=== PATIENT | female | born 1970 | race Caucasian/White ===

== ENCOUNTER 2018-08-26 00:44 | Inpatient (IN) | payer MEDICAID ==
[~2018-08-26] VITALS: Ht 165.1 cm; Wt 72.6 kg
[2018-08-26 00:53] VITALS: Ht 165.1 cm; Wt 72.6 kg
[2018-08-26 01:55] LABS: CALCIUM 8.1 mg/dL (8.5-10.1); CARBON DIOXIDE 19.4 mmol/L (21-32); CHLORIDE SERUM 97 mmol/L (98-107); CREATININE SERUM 0.9 mg/dL (0.6-1.0); GFR1 > 60 mL/min; GLUCOSE SERUM 235 mg/dL (74-106); POTASSIUM SERUM 4.1 mmol/L (3.5-5.1); SODIUM SERUM 131 mmol/L (136-145)
[2018-08-26 02:00] LABS: ALKALINE PHOSPHATASE 49 U/L (46-116); ALT/SGPT 16 U/L (14-59); AST/SGOT 22 U/L (15-37); BILIRUBIN TOTAL 0.41 mg/dL (0.20-1.00); TOTAL PROTEIN, SERUM 6.7 g/dL (6.4-8.2)
[2018-08-26 02:01] LABS: BASOPHIL % 0.2 % (0-2); PLATELET COUNT 342 x10^3mcL (130-400); RED CELL DISTRIBUTION WIDTH 13.6 % (11.5-14.5)
[2018-08-26 04:33] LABS: AMYLASE 31 U/L (25-115); CHOLESTEROL 179 mg/dL (<200); LIPASE 149 IU/L (73-393); MAGNESIUM 1.8 mg/dL (1.8-2.4); PHOSPHOROUS 3.4 mg/dL (2.5-4.9)
[2018-08-26 04:34] LABS: CHOLESTEROL/HDL RATIO 10.5; HDL CHOLESTEROL 17 mg/dL (40-60); TRIGLYCERIDES 503 mg/dL (<150)
[2018-08-26] MEDS ORDERED: METFORMIN HYDR500 M1 (04:34)
[2018-08-26 04:41] LABS: FREE T4 1.37 ng/dL (0.76-1.46); FREE THYROXINE INDEX 3.4 ug/dL (1.4-4.5); T3 TOTAL 1.27 ng/mL; T4(THYROXINE) 10.1 ug/dL (4.7-13.3)
[2018-08-26 05:14] LABS: UA SPECIFIC GRAVITY 1.015 (1.005-1.035); microscopic required? YES; urine erythrocyte 2+ (NEGATIVE)
[2018-08-26 05:19] VITALS: BP 101/66
[2018-08-26 05:27] LABS: AMPHETAMINE QUAL UR NONE DETECTED (See below)
[2018-08-26 06:26] LABS: CALCIUM 6.8 mg/dL (8.5-10.1); CHLORIDE SERUM 102 mmol/L (98-107); CREATININE SERUM 0.8 mg/dL (0.6-1.0); GFR1 > 60 mL/min; GLUCOSE SERUM 239 mg/dL (74-106); MAGNESIUM 1.8 mg/dL (1.8-2.4); PHOSPHOROUS 2.8 mg/dL (2.5-4.9); POTASSIUM SERUM 4.3 mmol/L (3.5-5.1); SODIUM SERUM 134 mmol/L (136-145)
[2018-08-26 07:12] LABS: BASOPHIL % 0.3 % (0-2); PLATELET COUNT 306 x10^3mcL (130-400); RED CELL DISTRIBUTION WIDTH 13.3 % (11.5-14.5)
[2018-08-26 08:34] VITALS: BP 99/65
[2018-08-26 11:55] VITALS: BP 109/78
[2018-08-26 15:44] LABS: BASOPHIL % 0.6 % (0-2); PLATELET COUNT 306 x10^3mcL (130-400); RED CELL DISTRIBUTION WIDTH 13.4 % (11.5-14.5)
[2018-08-26 15:50] LABS: CALCIUM 7.5 mg/dL (8.5-10.1); CARBON DIOXIDE 20.2 mmol/L (21-32); CHLORIDE SERUM 102 mmol/L (98-107); CREATININE SERUM 0.7 mg/dL (0.6-1.0); GFR1 > 60 mL/min; GLUCOSE SERUM 231 mg/dL (74-106); POTASSIUM SERUM 3.7 mmol/L (3.5-5.1); SODIUM SERUM 135 mmol/L (136-145)
[2018-08-26 16:26] VITALS: BP 106/65
[2018-08-26 21:05] VITALS: BP 107/69
[2018-08-27 05:40] VITALS: BP 96/64
[2018-08-27 05:58] LABS: BASOPHIL % 1.9 % (0-2); PLATELET COUNT 272 x10^3mcL (130-400); RED CELL DISTRIBUTION WIDTH 13.7 % (11.5-14.5)
[2018-08-27 06:34] LABS: CALCIUM 7.3 mg/dL (8.5-10.1); CHLORIDE SERUM 102 mmol/L (98-107); CREATININE SERUM 0.7 mg/dL (0.6-1.0); GFR1 > 60 mL/min; GLUCOSE SERUM 155 mg/dL (74-106); PHOSPHOROUS 2.4 mg/dL (2.5-4.9); POTASSIUM SERUM 3.6 mmol/L (3.5-5.1); SODIUM SERUM 135 mmol/L (136-145)
[2018-08-27 08:15] VITALS: BP 99/65
[2018-08-27 11:59] VITALS: BP 100/64
[2018-08-27 16:25] VITALS: BP 112/64
[2018-08-27 20:46] VITALS: BP 99/65
[2018-08-28 05:56] VITALS: BP 97/60
[2018-08-28 06:16] LABS: BASOPHIL % 0.2 % (0-2); PLATELET COUNT 289 x10^3mcL (130-400); RED CELL DISTRIBUTION WIDTH 14.2 % (11.5-14.5)
[2018-08-28 06:21] LABS: CARBON DIOXIDE 21.9 mmol/L (21-32); CHLORIDE SERUM 103 mmol/L (98-107); CREATININE SERUM 0.6 mg/dL (0.6-1.0); GFR1 > 60 mL/min; GLUCOSE SERUM 145 mg/dL (74-106); PHOSPHOROUS 2.4 mg/dL (2.5-4.9); POTASSIUM SERUM 3.5 mmol/L (3.5-5.1); SODIUM SERUM 134 mmol/L (136-145)
[2018-08-28 08:11] VITALS: BP 91/53
[2018-08-28 11:37] VITALS: BP 93/55
[2018-08-28 17:50] VITALS: BP 90/62
[2018-08-28 21:12] VITALS: BP 101/66
[2018-08-29] VITALS (7 sets, daily range): BP systolic 92–99; BP diastolic 56–65
[2018-08-29 06:28] LABS: BASOPHIL % 0.4 % (0-2); PLATELET COUNT 343 x10^3mcL (130-400); RED CELL DISTRIBUTION WIDTH 14.1 % (11.5-14.5)
[2018-08-29 06:50] LABS: CALCIUM 7.2 mg/dL (8.5-10.1); CARBON DIOXIDE 23.5 mmol/L (21-32); CHLORIDE SERUM 105 mmol/L (98-107); CREATININE SERUM 0.7 mg/dL (0.6-1.0); GFR1 > 60 mL/min; GLUCOSE SERUM 112 mg/dL (74-106); PHOSPHOROUS 2.9 mg/dL (2.5-4.9); POTASSIUM SERUM 3.1 mmol/L (3.5-5.1); SODIUM SERUM 138 mmol/L (136-145)
[2018-08-30 03:53] LABS: PLATELET COUNT 395 x10^3mcL (130-400); RED CELL DISTRIBUTION WIDTH 14.4 % (11.5-14.5)
[2018-08-30 04:06] LABS: CALCIUM 7.8 mg/dL (8.5-10.1); CARBON DIOXIDE 24.9 mmol/L (21-32); CHLORIDE SERUM 107 mmol/L (98-107); CREATININE SERUM 0.7 mg/dL (0.6-1.0); GFR1 > 60 mL/min; GLUCOSE SERUM 115 mg/dL (74-106); MAGNESIUM 1.7 mg/dL (1.8-2.4); PHOSPHOROUS 3.6 mg/dL (2.5-4.9); POTASSIUM SERUM 3.4 mmol/L (3.5-5.1); SODIUM SERUM 142 mmol/L (136-145)
[2018-08-30 05:56] VITALS: BP 119/71
[2018-08-30] MEDS ORDERED: LIPI10 PO (08:07)
[2018-08-30] MEDS ORDERED: ECO81 PO (08:07)
[2018-08-30] MEDS ORDERED: IND10 PO (08:07)
[2018-08-30] MEDS ORDERED: GLU500 PO (08:08)
[2018-08-30 08:20] VITALS: BP 92/61
[2018-08-30 12:45] VITALS: BP 110/71
[2018-08-30 15:20] VITALS: BP 110/71
[2018-08-30 16:15] VITALS: BP 108/77
[2018-08-30 21:41] VITALS: BP 154/85
[2018-08-31 05:54] VITALS: BP 102/64
[2018-08-31 09:43] VITALS: BP 103/72
[2018-08-31 12:41] VITALS: BP 99/70
[2018-08-31 16:49] VITALS: BP 101/57
[2018-08-31 21:09] VITALS: BP 99/62
[2018-09-01 05:12] VITALS: BP 99/61
[2018-09-01 09:38] VITALS: BP 101/61
[2018-09-01 12:34] VITALS: BP 101/61
[2018-09-01 13:00] VITALS: BP 93/61; BP 96/44
== END 2018-09-01 14:45 | disposition home or self-care (01) | DRG 720 ==
LOC: ED 00:44 → DU 03:32
PROVIDERS: Emergency Medicine; ADMIT Internal Medicine
DX: A41.9 Sepsis, unspecified organism (principal); I21.4 Non-ST elevation (NSTEMI) myocardial infarction; E11.10 Type 2 diabetes mellitus with ketoacidosis without coma; E44.0 Moderate protein-calorie malnutrition; J15.9 Unspecified bacterial pneumonia; D68.59 Other primary thrombophilia; E87.1 Hypo-osmolality and hyponatremia; E78.5 Hyperlipidemia, unspecified; Z68.26 Body mass index [BMI] 26.0-26.9, adult; Z79.84 Long term (current) use of oral hypoglycemic drugs
CPT/HCPCS: 82962; 83880; 84439; 85378; 87804; A9500; J0696; J1644; J1815; J1956; J2785; J3490; J7030; J7050; Q0092; Q9967

== ENCOUNTER 2018-10-01 21:46 | Emergency (ER) | payer MEDICAID ==
[~2018-10-01] VITALS: Ht 165.1 cm; Wt 69.6 kg
[~2018-10-01 21:46] MED LIST: ECO81 PO; GLU500 PO; IND10 PO; LIPI10 PO; METFORMIN HYDR500 M1
[2018-10-01 22:08] VITALS: Ht 165.1 cm; Wt 69.6 kg
[2018-10-01 23:26] VITALS: BP 140/85
== END 2018-10-02 00:52 | disposition home or self-care (01) ==
LOC: ED 21:46
DX: J06.9 Acute upper respiratory infection, unspecified (principal); I10 Essential (primary) hypertension; E11.9 Type 2 diabetes mellitus without complications

== ENCOUNTER 2018-10-05 00:21 | Emergency (ER) | payer MEDICAID ==
[~2018-10-05] VITALS: Ht 162.6 cm; Wt 69.4 kg
[2018-10-05 00:29] VITALS: BP 137/91; Ht 162.6 cm; Wt 69.4 kg
== END 2018-10-05 01:44 | disposition home or self-care (01) ==
LOC: ED 00:21
DX: J20.9 Acute bronchitis, unspecified (principal); J06.9 Acute upper respiratory infection, unspecified; I10 Essential (primary) hypertension; E11.9 Type 2 diabetes mellitus without complications

== ENCOUNTER 2020-01-26 12:48 | Emergency (ER) | payer MEDICAID, SELFPAY ==
[~2020-01-26] VITALS: Ht 162.6 cm; Wt 72.1 kg
[2020-01-26 14:14] VITALS: Ht 162.6 cm; Wt 72.1 kg
[2020-01-26 15:12] VITALS: BP 121/89
== END 2020-01-26 15:12 | disposition home or self-care (01) ==
LOC: ED 12:48
DX: U07.1 COVID-19 (principal); I10 Essential (primary) hypertension; E11.9 Type 2 diabetes mellitus without complications
CPT/HCPCS: U0003-CS

== ENCOUNTER 2020-01-28 08:32 | Emergency (ER) | payer MEDICAID, SELFPAY ==
[~2020-01-28] VITALS: Ht 152.4 cm; Wt 72.1 kg
[2020-01-28 08:44] VITALS: BP 122/63; Ht 152.4 cm; Wt 72.1 kg
== END 2020-01-28 11:10 | disposition home or self-care (01) ==
LOC: ED 08:32
DX: U07.1 COVID-19 (principal); E86.0 Dehydration; I10 Essential (primary) hypertension; E11.9 Type 2 diabetes mellitus without complications; E78.00 Pure hypercholesterolemia, unspecified